=== PATIENT | male | born 1995 | race Two or more races ===

== ENCOUNTER 2020-02-01 22:48 | Emergency (ER) | payer OTHER ==
[~2020-02-01] VITALS: Ht 172.7 cm; Wt 90.7 kg
[2020-02-01] MEDS ORDERED: MONTELUKAST SOD10 MG (23:11)
[2020-02-02] MEDS ORDERED: DOLOGESIC 500-1 EACH PO (04:25)
[2020-02-02] MEDS ORDERED: ZITHROMAX500 MG PO (04:25)
[2020-02-02] MEDS ORDERED: ALLEGRA-D 12 H1 EACH PO (04:25)
== END 2020-02-02 04:45 | disposition home or self-care (01) ==
LOC: ER 22:48
DX: J06.9 Acute upper respiratory infection, unspecified (principal); R50.9 Fever, unspecified